=== PATIENT | female | born 2000 | race Caucasian/White ===

== ENCOUNTER → 2023-05-18 | Outpatient (CLI) | payer BC | LOC: MC.RAD 07:59 | DX: N63.10 Unspecified lump in the right breast, unspecified quadrant (principal); N63.21 Unspecified lump in the left breast, upper outer quadrant ==

== ENCOUNTER → 2023-05-23 | Outpatient (CLI) | payer BC | LOC: MC.RAD 07:58 | DX: N63.21 Unspecified lump in the left breast, upper outer quadrant (principal) ==